=== PATIENT | female | born 1990 | race Caucasian/White ===

== ENCOUNTER 2018-11-07 21:17 | Emergency (ER) | payer MEDICAID ==
[~2018-11-07] VITALS: Ht 175.3 cm; Wt 105.2 kg
[2018-11-07 21:24] VITALS: BP 141/95; Ht 175.3 cm; Wt 105.2 kg
== END 2018-11-07 22:54 | disposition left against medical advice (07) ==
LOC: ED 21:17
DX: Z53.21 Procedure and treatment not carried out due to patient leaving prior to being seen by health care provider (principal)